=== PATIENT | female | born 2005 | race Caucasian/White ===

== ENCOUNTER 2023-01-20 11:17 | Outpatient (CLI) | payer OTHER, SELFPAY | END 2023-01-20 11:18 | disposition home or self-care (01) | PROVIDERS: Visit Provider Advanced Practice Midwife | DX: Z01.419 Encounter for gynecological examination (general) (routine) without abnormal findings (principal); Z11.3 Encounter for screening for infections with a predominantly sexual mode of transmission | CPT/HCPCS: 86592; 86703; 87340 ==

== ENCOUNTER 2023-01-28 11:08 | Outpatient (CLI) | payer OTHER, SELFPAY | END 2023-01-28 11:09 | disposition home or self-care (01) | LOC: NFLDREF 11:10 | PROVIDERS: Visit Provider Nurse Practitioner Family | DX: Z79.899 Other long term (current) drug therapy (principal) | CPT/HCPCS: 80053; 80061; 82306; 84443 ==

== ENCOUNTER 2023-12-24 09:12 | Outpatient (CLI) | payer OTHER, SELFPAY ==
--- OUTSIDE RECORDS SUMMARY | 2023-12-24 09:22 | XMS_ITS | Clinical Summary ---
Author Organization [facility] Address [address] [facility] [place] [address] Care Team Providers Care Immunohematologist Name Role Phone [facility]- Primary Care Provider Allergies No known active allergies Medications No known medications Social History Tobacco Use Types Packs/Day Years Used Date Smoking Tobacco: Never Assessed Adolescent Education Answer Date Record ed Getting School Help Needed Not on file 05/30 Sex and Gender Information Value Date Recorded Sex Assigned at Not on file Gender Identity Not on file Sexual Orientation Not on file Last Filed Vital Signs Vital Sign Reading Time Taken Comments Blood Pressure 137/83 05/30/2023 4:57 PM TIE TAPE MACHINE OPERATOR Pulse 86 05/30/2023 4:57 PM TIE TAPE MACHINE OPERATOR Temperature 37.1 ??C (98.7 ??F) 05/30/2023 4:57 PM CS T Respiratory Rate 20 05/30/2023 4:58 PM TIE TAPE MACHINE OPERATOR Oxygen Saturation 100% 05/30/2023 4:57 PM TIE TAPE MACHINE OPERATOR Inhaled Oxygen Concentration - - Weight 74.1 kg (163 lb 5.8 oz) 05/30/2023 4:57 P M TIE TAPE MACHINE OPERATOR Height 157.5 cm (5' 2) 05/30/2023 4:57 PM TIE TAPE MACHINE OPERATOR Body Mass Index 29.88 05/30/2023 4:57 PM TIE TAPE MACHINE OPERATOR Plan of Treatment Health Maintenance Due Date Last Done Comments ADVANCE CARE PLANNING 2003 ANNUAL REVIEW OF HM ORDERS 2003 CHLAMYDIA SCREENING 2003 YEARLY PREVENTIVE VISIT 2003 HIV SCREENING 11/06/2018 HPV IMMUNIZATION (1 - 3-dose series) 11/06/2018 HEPATITIS C SCREENING 11/06/2021 COVID-19 Vaccine ( season) 2022 PHQ-2 (once per calendar year) 2023 INFLUENZA VACCINE (#1) 2023 01/20/2023 DTAP/TDAP/TD IMMUNIZATION (7 - Td or Tdap) 11/30/2024 11/30/2014, 12/29/2007, 03/06/2005, Additional history exists HEPATITIS B IMMUNIZATION Completed 005, 01/11/2004, 2003 Pneumococcal Vaccine: Pediatrics (0 to 5 Years) and At-Risk Patients (6 to 64 Years) Completed 11/06/2004, 05/09/2004, 03/12/2004, Additional history exists IPV IMMUNIZATION Completed 12/29/2007, , 03/12/2004, Additional history exists MENINGITIS IMMUNIZATION Completed 01/10/2021 RSV MONOCLONAL ANTIBODY Aged Out No l onger eligible based on patient's age to complete this topic Care Teams Immunohematologist Relationship Specialty Start Date End Date [facility] [address] [place] [address] PCP - General 05/30/23
--- OUTSIDE RECORDS SUMMARY | 2023-12-24 09:22 | XMS_ITS | Clinical Summary ---
Author Organization [facility] Address [address], [place] [address] Care Team Providers Care Solar Project Coordination Specialist Name Role Phone Unavailable Primary Care Provider Unavailabl e Source Comments You are receiving this document as you are listed as the primary care provider,follow-up provider, or the patient has been referred to you for consultation.This is in compliance with the Medicare and[facility] EHR Incentive Program,which states Providers who transition their patient to another setting of careor provider of care or refers their patient to another provider of care shouldprovide summary care record for each transition of care or referral. [facility] Medications No known medications Active Problems No known active problems Social History Tobacco Use Types Packs/Day Years Used Date Smoking Tobacco: Never Assessed Sex and Gender Information Value Date Recorded Sex Assigned at Not on file Gender Identity Not on file Sexual Orientation Not on file Plan of Treatment Health Maintenance Due Date Last Done Comments Chlamydia 2003 Hep C Screening (Preventive Services) 2003 HPV Vaccine (1 - 3-dose series) 11/06/2018 HIV Screening (Preventive Services) 2019 Adult Preventive Visit 11/06/2021 HepB (1) 11/06/2022 COVID-19 Vaccine ( - 24 season) 2023 Influenza (#1) 2023 01/20/2023 DTaP/Tdap/Td (7 - Tdap) 11/30/2024 12/01/19 15, 12/29/2007, 03/06/2005, Additional history exists Zoster/Shingles (1 of 2) 11/06/2053 Pneumococcal Aged Out 11/06/2004, 10/19, 05/09/2004, Additional history exists No longer eligible based on patient's age to complete this topic Hib Completed 03/06/2005, 04/21, 03/12/2004, Additional history exists IPV (Polio) Completed 12/29/2007, 04/21, 03/12/2004, Additional history exists HepA Completed 12/27/2009, 12/29/2008 MCV4 Completed 01/10/2021 [id number] [place] [address]
--- OUTSIDE RECORDS SUMMARY | 2023-12-24 09:22 | XMS_ITS | Referral Summary ---
Author Organization [facility] Address [address] [address] Care Team Providers Care Sports Recruiter Name Role Phone [facility]- Primary Care Provider Allergies No known active [...] Comments Blood Pressure 137/83 05/30/2023 4:57 PM CUSTOMER PROJECT MANAGER Pulse 86 05/30/2023 4:57 PM CUSTOMER PROJECT MANAGER Temperature 37.1 ??C (98.7 ??F) 05/30/2023 4:57 PM CS T Respiratory Rate 20 05/30/2023 4:58 PM CUSTOMER PROJECT MANAGER Oxygen Saturation 100% 05/30/2023 4:57 PM CUSTOMER PROJECT MANAGER Inhaled Oxygen Concentration - - Weight 74.1 kg (163 lb 5.8 oz) 05/30/2023 4:57 P M CUSTOMER PROJECT MANAGER Height 157.5 cm (5' 2) 05/30/2023 4:57 PM CUSTOMER PROJECT MANAGER Body Mass Index 29.88 05/30/2023 4:57 PM CUSTOMER PROJECT MANAGER Plan of Treatment Not on file Care Teams Sports Recruiter Relationship Specialty Start Date End Date [facility]- [address] [place] [address] PCP - General 05/30/23
== END 2023-12-24 09:13 | disposition home or self-care (01) ==
LOC: LKVREF 09:13
PROVIDERS: PCP Physician Assistant Medical; Visit Provider Family Medicine
DX: Z13.29 Encounter for screening for other suspected endocrine disorder (principal)
CPT/HCPCS: 84443

== ENCOUNTER 2024-03-11 13:52 | Outpatient (CLI) | payer OTHER, SELFPAY ==
--- OUTSIDE RECORDS SUMMARY | 2024-03-14 06:03 | XMS_ITS | Clinical Summary ---
Author Organization [facility] Address [address], [place] [address] Care Team Providers Care Computer Lab Aide Name Role Phone Unavailable Primary Care Provider Unavailabl e Source Comments You are receiving this document as you are listed as the primary care provider,follow-up provider, or the patient has been referred to you for consultation.This is in compliance with the Medicare and[facility] E[facility] Incentive Program,which states Providers who transition their patient to another setting of careor provider of care or refers their patient to another provider of care shouldprovide summary care record for each transition of care or referral. [facility] Medications No known medications Active Problems No [...] 11/06/2021 HepB (1) 11/06/2022 COVID-19 Vaccine ( season) 2023 Influenza (#1) 2023 01/20/2023 DTaP/Tdap/Td [...] HepA Completed 12/27/2009, 12/29/2008 MCV4 Completed 01/10/2021 Infant RSV Aged Out No longer eligi ble based on patient's age to complete this topic [id number] [place] [address]
--- OUTSIDE RECORDS SUMMARY | 2024-03-14 06:04 | XMS_ITS | Clinical Summary ---
Author Organization [facility] Address [address] [place] [address] Care Team Providers Care Burrer Operator Name Role Phone [facility]- Primary Care Provider Allergies No known active allergies Medications No known medications Social History Tobacco Use Types Packs/Day Years Used Date Smoking Tobacco: Never Assessed Adolescent Education Answer Date Record ed Getting School Help Needed Not on file 05/30 Comments No Sex and Gender Information Value Date Recorded Sex Assigned at Not on file Legal Sex Female 4:54 PM BAG TURNER Gender Identity Not on file Sexual Orientation Not on file Last Filed Vital Signs Vital Sign Reading Time Taken Comments Blood Pressure 137/83 05/30/2023 4:57 PM BAG TURNER Pulse 86 05/30/2023 4:57 PM BAG TURNER Temperature 37.1 C (98.7 F) 05/30/2023 4:57 PM BAG TURNER Respiratory Rate 20 05/30/2023 4:58 PM BAG TURNER Oxygen Saturation 100% 05/30/2023 4:57 PM BAG TURNER Inhaled Oxygen Concentration - - Weight 74.1 kg (163 lb 5.8 oz) 05/30/2023 4:57 P M BAG TURNER Height 157.5 cm (5' 2) 05/30/2023 4:57 PM BAG TURNER Body Mass Index 29.88 05/30/2023 4:57 PM BAG TURNER Plan of Treatment Health Maintenance Due Date Last Done Comments ADVANCE CARE PLANNING 2003 ANNUAL REVIEW OF HM ORDERS 2003 CHLAMYDIA SCREENING 2003 YEARLY PREVENTIVE VISIT 2003 HIV SCREENING 11/06/2018 HPV IMMUNIZATION (1 - 3-dose series) 11/06/2018 HEPATITIS C SCREENING 11/06/2021 PHQ-2 (once per calendar year) 2023 COVID-19 Vaccine (1 - 2023-25 season) 2023 INFLUENZA VACCINE (#1) 2023 01/20/2023 DTAP/TDAP/TD IMMUNIZATION (7 - Td or Tdap) 11/30/2024 11/30/2014, 12/29/2007, 03/06/2005, Additional history exists RSV VACCINE (1 - 1-dose 75+ series) 11/06/2078 HEPATITIS B IMMUNIZATION Completed 005, 01/11/2004, 2003 Pneumococcal Vaccine: Pediatrics (0 to 5 Years) and At-Risk Patients (6 to 64 Years) Completed 11/06/2004, 05/09/2004, 03/12/2004, Additional history exists MENINGITIS IMMUNIZATION Completed 01/10/2021 RSV MONOCLONAL ANTIBODY Aged Out No l onger eligible based on patient's age to complete this topic Care Teams Burrer Operator Relationship Specialty Start Date End Date [facility]- [address] [place] [id number] PCP - General 05/30/23
--- OUTSIDE RECORDS SUMMARY | 2024-03-14 06:04 | XMS_ITS | Referral Summary ---
Author Organization [facility] Address [address] [place] [address] Care Team Providers Care Emergency Department Nurse Name Role Phone [facility]- Primary Care Provider Allergies No known active allergies Medications No known medications Social History Tobacco Use Types Packs/Day Years Used Date Smoking Tobacco: Never Assessed Adolescent Education Answer Date Record ed Getting School Help Needed Not on file 05/30 Comments No Sex and Gender Information Value Date Recorded Sex Assigned at Not on file Legal Sex Female 4:54 PM INTERNSHIP COORDINATOR Gender Identity Not on file Sexual Orientation Not on file Last Filed Vital Signs Vital Sign Reading Time Taken Comments Blood Pressure 137/83 05/30/2023 4:57 PM INTERNSHIP COORDINATOR Pulse 86 05/30/2023 4:57 PM INTERNSHIP COORDINATOR Temperature 37.1 C (98.7 F) 05/30/2023 4:57 PM INTERNSHIP COORDINATOR Respiratory Rate 20 05/30/2023 4:58 PM INTERNSHIP COORDINATOR Oxygen Saturation 100% 05/30/2023 4:57 PM INTERNSHIP COORDINATOR Inhaled Oxygen Concentration - - Weight 74.1 kg (163 lb 5.8 oz) 05/30/2023 4:57 P M INTERNSHIP COORDINATOR Height 157.5 cm (5' 2) 05/30/2023 4:57 PM INTERNSHIP COORDINATOR Body Mass Index 29.88 05/30/2023 4:57 PM INTERNSHIP COORDINATOR Plan of Treatment Not on file Care Teams Emergency Department Nurse Relationship Specialty Start Date End Date [facility]- [address] [place] [address] PCP - General 05/30/23
== END 2024-03-11 13:53 | disposition home or self-care (01) ==
LOC: NFLDREF 03-14 06:02
PROVIDERS: PCP Physician Assistant Medical; Referring Provider Physician Assistant Medical; Visit Provider Family Medicine
DX: Z11.59 Encounter for screening for other viral diseases (principal)
CPT/HCPCS: 86706

== ENCOUNTER 2024-09-06 13:51 | Outpatient (CLI) | payer OTHER, SELFPAY | END 2024-09-06 13:52 | disposition home or self-care (01) | PROVIDERS: PCP Physician Assistant Medical; Visit Provider Advanced Practice Midwife | DX: N92.1 Excessive and frequent menstruation with irregular cycle (principal); R10.13 Epigastric pain | CPT/HCPCS: 84146; 84443; 84450; 84460 ==

== ENCOUNTER 2024-09-20 11:14 | Outpatient (CLI) | payer OTHER, SELFPAY ==
--- NOTE | 2024-09-20 11:15 | CRLHL7_ITS ---
For Patients: As a result of the Century Cures Act, medical imaging exams and procedure reports are released immediately into your electronic medical record. You may view this report before your referring provider. If you have questions, please contact your health care provider. INDICATION: Excessive and frequent menstruation COMPARISON: None. TECHNIQUE: 2D estrada-scale and color Doppler images were acquired of the pelvis using a transabdominal and transvaginal approach. Transvaginal imaging performed to better visualize the endometrial stripe and ovaries. FINDINGS: Sonographic images demonstrate a normal size and smooth outer contour of the uterus. Uterus measures 7.8 cm in length by 3.3 cm in AP diameter by 4.8 cm in transverse dimension. The myometrium has a normal uniform echotexture. The endometrial lining measures 1 mm in composite thickness. Ovoid focus of hyperechoic echotexture associated with the endometrium measures 14 x 4 x 4 millimeters. No endometrial fluid. The right ovary measures 3.7 x 2.2 x 3.3 cm in size and the left ovary measures 3.8 x 2.3 x 2.7 cm. The ovaries demonstrate normal arterial and venous blood flow on color Doppler analysis. There are no suspicious fluid collections within the cul-de-sac. IMPRESSION: Possible endometrial polyp measuring 14 x 4 x 4 millimeters. No endometrial fluid. Dictated by Braulio Clements MD @ 09/20/2024 8:53:01 PM (Electronically Signed)
== END 2024-09-20 11:15 | disposition home or self-care (01) ==
LOC: US 11:15
PROVIDERS: PCP Physician Assistant Medical; Visit Provider Advanced Practice Midwife
DX: N92.1 Excessive and frequent menstruation with irregular cycle (principal); R93.89 Abnormal findings on diagnostic imaging of other specified body structures
CPT/HCPCS: 76830; 76856